=== PATIENT | female | born 1950 | race Caucasian/White ===

== ENCOUNTER → 2024-03-03 13:42 | Outpatient (REF) | payer MEDICARE, SELFPAY | LOC: MRI 3T 13:42 | PROVIDERS: ATTENDING PHYSICIAN Psychiatry & Neurology Neurology; FAMILY PHYSICIAN Internal Medicine | DX: R41.3 Other amnesia (principal) | CPT/HCPCS: 70553; A9575 ==

== ENCOUNTER → 2024-03-15 12:00 | Outpatient (REF) | payer MEDICARE, SELFPAY | LOC: DHSLP 12:00 | PROVIDERS: ATTENDING PHYSICIAN Psychiatry & Neurology Neurology | DX: G47.30 Sleep apnea, unspecified (principal); R06.83 Snoring | CPT/HCPCS: 95800 ==

== ENCOUNTER 2024-05-05 09:38 | Outpatient (RCR) | payer MEDICARE, SELFPAY | END 2024-05-05 23:59 | disposition home or self-care (01) | LOC: ROT 09:38 | PROVIDERS: ATTENDING PHYSICIAN Psychiatry & Neurology Neurology; FAMILY PHYSICIAN Internal Medicine | DX: R41.3 Other amnesia (principal); R41.9 Unspecified symptoms and signs involving cognitive functions and awareness; Z73.6 Limitation of activities due to disability | CPT/HCPCS: 96125; 97167; 97535 ==

== ENCOUNTER → 2024-05-17 15:04 | Outpatient (REF) | payer MEDICARE, SELFPAY | LOC: RCS 15:04 | PROVIDERS: ATTENDING PHYSICIAN Psychiatry & Neurology Neurology; FAMILY PHYSICIAN Internal Medicine | DX: I63.9 Cerebral infarction, unspecified (principal) | CPT/HCPCS: 93306 ==

== ENCOUNTER → 2024-06-02 15:28 | Outpatient (REF) | payer MEDICARE, SELFPAY | LOC: PAVMRI 15:28 | PROVIDERS: ATTENDING PHYSICIAN Psychiatry & Neurology Neurology; FAMILY PHYSICIAN Internal Medicine | DX: I63.9 Cerebral infarction, unspecified (principal) | CPT/HCPCS: 72141 ==

== ENCOUNTER → 2024-06-03 14:34 | Outpatient (REF) | payer MEDICARE, SELFPAY | LOC: PAVMRI 14:34 | PROVIDERS: ATTENDING PHYSICIAN Psychiatry & Neurology Neurology; FAMILY PHYSICIAN Internal Medicine | DX: I63.9 Cerebral infarction, unspecified (principal); I63.89 Other cerebral infarction | CPT/HCPCS: 70544; 70549; A9585 ==

== ENCOUNTER 2024-06-09 15:00 | Outpatient (RCR) | payer MEDICARE, SELFPAY | END 2024-06-09 23:59 | disposition home or self-care (01) | LOC: ROT 15:00 | PROVIDERS: ATTENDING PHYSICIAN Psychiatry & Neurology Neurology; FAMILY PHYSICIAN Internal Medicine | DX: R41.3 Other amnesia (principal); Z73.6 Limitation of activities due to disability | CPT/HCPCS: 97129; 97130; 97530; 97535 ==

== ENCOUNTER 2024-07-06 16:08 | Outpatient (RCR) | payer MEDICARE, SELFPAY | END 2024-07-06 23:59 | disposition home or self-care (01) | LOC: ROT 16:08 | PROVIDERS: Psychiatry & Neurology Neurology; FAMILY PHYSICIAN Internal Medicine | DX: R41.3 Other amnesia (principal); Z73.6 Limitation of activities due to disability; R41.89 Other symptoms and signs involving cognitive functions and awareness | CPT/HCPCS: 97110; 97129; 97130; 97530; 97535 ==

== ENCOUNTER 2024-07-12 15:23 | Outpatient (RCR) | payer MEDICARE, SELFPAY | END 2024-07-12 23:59 | disposition home or self-care (01) | LOC: ROT 15:23 | PROVIDERS: FAMILY PHYSICIAN Internal Medicine | DX: R41.3 Other amnesia (principal); Z73.6 Limitation of activities due to disability; R41.89 Other symptoms and signs involving cognitive functions and awareness | CPT/HCPCS: 97129; 97130; 97530 ==

== ENCOUNTER 2025-01-11 06:26 | Day surgery (SDC) | payer MEDICARE, SELFPAY ==
[2025-01-11] MEDS: ALCAINE 0.5% EYE DROPS 4 DROP OPHTH (06:44)
[2025-01-11] MEDS: PRED FORTE 1% EYE DROPS 3 DROP OPHTH (06:45)
[2025-01-11] MEDS: POLYTRIM OPHTHALMIC SOLUTION 3 DROP OPHTH (06:45)
[2025-01-11 06:46] VITALS: BMI 16.5
[2025-01-11] MEDS: MYDRIACYL 3 DROP OPHTH (06:46)
[2025-01-11] MEDS: NEO-SYNEPHRINE 2.5% OPH SOL. 3 DROP OPHTH (06:46)
[2025-01-11] MEDS: CYCLOGYL 1% EYE DROPS 3 DROP OPHTH (06:47)
[2025-01-11] MEDS: AKTEN OPHTHALMIC GEL 1 ML OPHTH (06:47)
[2025-01-11] MEDS: ACUVAIL 3 DROPS OPHTH (06:48)
[2025-01-11 06:52] VITALS: BMI 16.5
[2025-01-11 06:53] VITALS: BP 119/65
[2025-01-11] MEDS: NORMOSOL-R/PLASMALYTE-A 1000 IV (06:58)
[2025-01-11 08:18] VITALS: BP 108/62
== END 2025-01-11 08:50 | disposition home or self-care (01) ==
LOC: SDS 06:26
PROVIDERS: ATTENDING PHYSICIAN Ophthalmology
DX: H25.11 Age-related nuclear cataract, right eye (principal)
CPT/HCPCS: 66984; V2632

== ENCOUNTER 2025-01-25 06:08 | Day surgery (SDC) | payer MEDICARE, SELFPAY ==
[2025-01-25] MEDS: NORMOSOL-R/PLASMALYTE-A 1000 IV (06:55)
[2025-01-25] MEDS: ALCAINE 0.5% EYE DROPS 4 DROP OPHTH (07:00)
[2025-01-25] MEDS: PRED FORTE 1% EYE DROPS 3 DROP OPHTH (07:02)
[2025-01-25 07:03] VITALS: BMI 16.5
[2025-01-25] MEDS: MYDRIACYL 3 DROP OPHTH (07:03)
[2025-01-25] MEDS: NEO-SYNEPHRINE 2.5% OPH SOL. 3 DROP OPHTH (07:03)
[2025-01-25 07:04] VITALS: BMI 16.5
[2025-01-25] MEDS: AKTEN OPHTHALMIC GEL 1 ML OPHTH (07:04)
[2025-01-25] MEDS: CYCLOGYL 1% EYE DROPS 3 DROP OPHTH (07:04)
[2025-01-25 07:05] VITALS: BP 120/67
[2025-01-25] MEDS: POLYTRIM OPHTHALMIC SOLUTION 3 DROP OPHTH (07:06)
[2025-01-25] MEDS: ACUVAIL 3 DROPS OPHTH (07:11)
[2025-01-25 08:21] VITALS: BP 108/67
== END 2025-01-25 08:45 | disposition home or self-care (01) ==
LOC: SDS 06:08
PROVIDERS: ATTENDING PHYSICIAN Ophthalmology
DX: H25.12 Age-related nuclear cataract, left eye (principal)
CPT/HCPCS: 66984; V2632